=== PATIENT | male | born 1945 | race Caucasian/White ===

== ENCOUNTER 2018-11-18 12:48 | Outpatient (RCR) | payer MEDICARE, OTHER ==
[2018-10-08 14:17] LABS: HEMATOCRIT 37 % (40-54); HEMOGLOBIN 10.7 G/DL (13.3-17.7); MEAN CORPUSCULAR HEMOGLOBIN 19 PG (25-34); MEAN CORPUSCULAR HGB CONC 29 G/DL (32-36); MEAN CORPUSCULAR VOLUME 65 FL (80-99); WHITE BLOOD COUNT 7.8 10^3/uL (4.3-11.0)
[2018-10-08 14:18] LABS: ABSOLUTE RETIC # 46 10e9/L (24-90); BASOPHILS % (AUTO) 1 % (0-10); EOSINOPHILS # (AUTO) 0.2 10^3/uL (0.0-0.3); EOSINOPHILS % (AUTO) 2 % (0-10); LYMPHOCYTES # (AUTO) 1.4 X 10^3 (1.0-4.0); LYMPHOCYTES % (AUTO) 18 % (12-44); MEAN PLATELET VOLUME 10.9 FL (7.4-10.4); MONOCYTES # (AUTO) 0.8 X 10^3 (0.0-1.0); MONOCYTES % (AUTO) 10 % (0-12); NEUTROPHILS # (AUTO) 5.4 X 10^3 (1.8-7.8); NEUTROPHILS % (AUTO) 70 % (42-75); PLATELET COUNT 241 10^3/uL (130-400); RED CELL DISTRIBUTION WIDTH 19.1 % (10.0-14.5)
[2018-10-08 14:19] LABS: RETICULOCYTE % 0.82 % (0.50-2.40)
[2018-10-08 14:24] LABS: ALANINE AMINOTRANSFERASE 18 U/L (0-55); ALBUMIN 4.1 GM/DL (3.2-4.5); ALKALINE PHOSPHATASE 61 U/L (40-136); BILIRUBIN,TOTAL 0.4 MG/DL (0.1-1.0); BUN/CREATININE RATIO 17; CALCIUM 9.3 MG/DL (8.5-10.1); CARBON DIOXIDE 23 MMOL/L (21-32); CHLORIDE 105 MMOL/L (98-107); CREATININE SERUM 1.01 MG/DL (0.60-1.30); GFR ESTIMATED > 60; GLUCOSE 202 MG/DL (70-105); POTASSIUM 3.6 MMOL/L (3.6-5.0); SODIUM 136 MMOL/L (135-145); TOTAL PROTEIN 6.8 GM/DL (6.4-8.2)
[~2018-11-18 12:48] MED LIST: FERRIC CARBOXYMALTOSE (CANCER) 750 MG in NS (IVPB) CANCER CENTER 250 ML IV SCH
[2018-11-18 13:22] LABS: BASOPHILS % (AUTO) 1 % (0-10); EOSINOPHILS # (AUTO) 0.1 10^3/uL (0.0-0.3); EOSINOPHILS % (AUTO) 1 % (0-10); HEMATOCRIT 45 % (40-54); HEMOGLOBIN 14.2 G/DL (13.3-17.7); LYMPHOCYTES # (AUTO) 1.7 X 10^3 (1.0-4.0); LYMPHOCYTES % (AUTO) 21 % (12-44); MEAN CORPUSCULAR HEMOGLOBIN 24 PG (25-34); MEAN CORPUSCULAR HGB CONC 32 G/DL (32-36); MEAN CORPUSCULAR VOLUME 76 FL (80-99); MONOCYTES # (AUTO) 0.7 X 10^3 (0.0-1.0); MONOCYTES % (AUTO) 9 % (0-12); NEUTROPHILS # (AUTO) 5.3 X 10^3 (1.8-7.8); NEUTROPHILS % (AUTO) 68 % (42-75); PLATELET COUNT 189 10^3/uL (130-400); WHITE BLOOD COUNT 7.9 10^3/uL (4.3-11.0)
[2018-11-18 13:41] LABS: ALANINE AMINOTRANSFERASE 25 U/L (0-55); ALBUMIN 4.4 GM/DL (3.2-4.5); ALKALINE PHOSPHATASE 66 U/L (40-136); BILIRUBIN,TOTAL 0.5 MG/DL (0.1-1.0); BUN/CREATININE RATIO 17; CALCIUM 9.7 MG/DL (8.5-10.1); CARBON DIOXIDE 26 MMOL/L (21-32); CHLORIDE 103 MMOL/L (98-107); CREATININE SERUM 1.03 MG/DL (0.60-1.30); GFR ESTIMATED > 60; GLUCOSE 127 MG/DL (70-105); POTASSIUM 3.8 MMOL/L (3.6-5.0); SODIUM 139 MMOL/L (135-145)
== END 2019-01-06 | disposition home or self-care (01) ==
LOC: ONC 12:48
PROVIDERS: ATTEND Internal Medicine Hematology & Oncology
DX: D50.9 Iron deficiency anemia, unspecified (principal); K90.9 Intestinal malabsorption, unspecified; E11.9 Type 2 diabetes mellitus without complications; I10 Essential (primary) hypertension; E78.00 Pure hypercholesterolemia, unspecified; Z79.82 Long term (current) use of aspirin; Z79.84 Long term (current) use of oral hypoglycemic drugs; Z79.899 Other long term (current) drug therapy
CPT/HCPCS: 36415; 80053; 82274; 82728; 83540; 85007; 85025; 85045; 96365; 99213; 99214

== ENCOUNTER 2019-02-20 10:08 | Outpatient (RCR) | payer MEDICARE, OTHER ==
[2019-02-17 13:09] LABS: BASOPHILS % (AUTO) 0 % (0-10); EOSINOPHILS # (AUTO) 0.1 10^3/uL (0.0-0.3); EOSINOPHILS % (AUTO) 1 % (0-10); HEMATOCRIT 49 % (40-54); HEMOGLOBIN 16.4 G/DL (13.3-17.7); LYMPHOCYTES # (AUTO) 1.5 X 10^3 (1.0-4.0); LYMPHOCYTES % (AUTO) 16 % (12-44); MEAN CORPUSCULAR HEMOGLOBIN 28 PG (25-34); MEAN CORPUSCULAR HGB CONC 33 G/DL (32-36); MEAN CORPUSCULAR VOLUME 85 FL (80-99); MEAN PLATELET VOLUME 10.8 FL (7.4-10.4); MONOCYTES # (AUTO) 0.8 X 10^3 (0.0-1.0); MONOCYTES % (AUTO) 9 % (0-12); NEUTROPHILS # (AUTO) 6.9 X 10^3 (1.8-7.8); NEUTROPHILS % (AUTO) 74 % (42-75); PLATELET COUNT 180 10^3/uL (130-400); RED CELL DISTRIBUTION WIDTH 14.4 % (10.0-14.5); WHITE BLOOD COUNT 9.3 10^3/uL (4.3-11.0)
[2019-02-17 13:32] LABS: ALANINE AMINOTRANSFERASE 19 U/L (0-55); ALBUMIN 4.2 GM/DL (3.2-4.5); ALKALINE PHOSPHATASE 70 U/L (40-136); BILIRUBIN,TOTAL 0.4 MG/DL (0.1-1.0); BUN/CREATININE RATIO 21; CALCIUM 9.4 MG/DL (8.5-10.1); CARBON DIOXIDE 23 MMOL/L (21-32); CHLORIDE 106 MMOL/L (98-107); CREATININE SERUM 1.05 MG/DL (0.60-1.30); GFR ESTIMATED > 60; GLUCOSE 150 MG/DL (70-105); POTASSIUM 4.2 MMOL/L (3.6-5.0); SODIUM 140 MMOL/L (135-145); TOTAL PROTEIN 6.9 GM/DL (6.4-8.2)
[2019-04-10] MEDS ORDERED: CYAN-23 PO (10:10)
[2019-04-10] MEDS ORDERED: SAXA5TAB PO (10:10)
[2019-04-10] MEDS ORDERED: ALFU10TA11 PO (10:10)
[2019-04-10] MEDS ORDERED: FINA5TAB6 PO (10:10)
[2019-04-10] MEDS ORDERED: CANA300T PO (10:10)
[2019-04-10] MEDS ORDERED: ASPI-586 PO (10:10)
[2019-04-10] MEDS ORDERED: INSU100V37 SQ (10:10)
[2019-04-10] MEDS ORDERED: PANT40TA3 PO (10:10)
[2019-04-10] MEDS ORDERED: BENA5TAB3 PO (10:10)
[2019-04-10] MEDS ORDERED: METF-399 PO (10:10)
[2019-04-10] MEDS ORDERED: ATOR40TA70 PO (10:10)
[2019-04-10] MEDS ORDERED: RIVA10TA PO (10:10)
== END 2019-05-18 | disposition home or self-care (01) ==
LOC: ONC 10:08
PROVIDERS: ATTEND Internal Medicine Hematology & Oncology
DX: D50.9 Iron deficiency anemia, unspecified (principal); K90.9 Intestinal malabsorption, unspecified; E11.9 Type 2 diabetes mellitus without complications; I10 Essential (primary) hypertension; E78.00 Pure hypercholesterolemia, unspecified; Z79.82 Long term (current) use of aspirin; Z79.84 Long term (current) use of oral hypoglycemic drugs; Z79.899 Other long term (current) drug therapy
CPT/HCPCS: 36415; 80053; 82728; 85025; 99213

== ENCOUNTER 2019-04-10 05:34 | Outpatient (CLI) | payer MEDICARE, OTHER ==
[~2019-04-10] VITALS: Ht 182 cm; Wt 95.4 kg
[2019-04-10] MEDS ORDERED: INSU100V37 SQ (10:10)
[2019-04-10] MEDS ORDERED: CANA300T PO (10:10)
[2019-04-10] MEDS ORDERED: RIVA10TA PO (10:10)
[2019-04-10] MEDS ORDERED: FINA5TAB6 PO (10:10)
[2019-04-10] MEDS ORDERED: PANT40TA3 PO (10:10)
[2019-04-10] MEDS ORDERED: ASPI-586 PO (10:10)
[2019-04-10] MEDS ORDERED: CYAN-23 PO (10:10)
[2019-04-10] MEDS ORDERED: ALFU10TA11 PO (10:10)
[2019-04-10] MEDS ORDERED: ATOR40TA70 PO (10:10)
[2019-04-10] MEDS ORDERED: METF-399 PO (10:10)
[2019-04-10] MEDS ORDERED: SAXA5TAB PO (10:10)
[2019-04-10] MEDS ORDERED: BENA5TAB3 PO (10:10)
== END 2019-04-10 10:14 | disposition home or self-care (01) ==
LOC: PREOP 05:34
PROVIDERS: ATTEND Specialist
DX: Z01.818 Encounter for other preprocedural examination (principal)

== ENCOUNTER 2019-04-11 10:28 | Day surgery (SDC) | payer MEDICARE, OTHER ==
[~2019-04-11] VITALS: Ht 182 cm; Wt 95.4 kg
[~2019-04-11 10:28] MED LIST changes: +ALFU10TA12 PO; +ASPI-586 PO; +ATOR40TA70 PO; +BENA5TAB3 PO; +CANA300T PO; +CYAN-23 PO; -FERRIC CARBOXYMALTOSE (CANCER) 750 MG in NS (IVPB) CANCER CENTER 250 ML IV SCH; +FINA5TAB6 PO; +INSU100V37 SQ; +METF-399 PO; +PANT40TA3 PO; +RIVA10TA PO; +SAXA5TAB PO
[2019-04-11 10:35] VITALS: BP 143/75
[2019-04-11] MEDS ORDERED: LIDOCAINE PF 1% 2 ML AMP IR PRN (10:45)
[2019-04-11] MEDS ORDERED: TIMOLOL MALEATE 0.5% 5 ML (TIMOPTIC) BTL OU PRN (10:45)
[2019-04-11] MEDS ORDERED: POVIDONE (BETADINE) OPHTH SOLN 5% 30 ML OP ONE (10:45)
[2019-04-11] MEDS ORDERED: MOXIFLOXACIN OPHTH SOLN 5 MG/ML 0.3 ML SYRINGE OP ONE (10:45)
[2019-04-11] MEDS: TETRACAINE 0.5% OPHTH SOLN 4 ML BTL (SINGLE DOSE ONLY) OU PRN ×4 (10:50→11:16)
[2019-04-11] MEDS: CYCLOPENTOLATE 1% (CYCLOGYL) 2 ML DROPS OP SCH ×3 (11:01→11:16)
[2019-04-11] MEDS: PHENYLEPHRINE 10% OPHTH (NEO-SYN) 5 ML BTL OU SCH ×3 (11:01→11:16)
--- NOTE | 2019-04-11 11:31 | Ophthalmologist Pre-Op Note ---
Pre-Operative Progress Note H&P Reviewed The H&P was reviewed, patient examined and no changes noted. Date H&P Reviewed: Apr 11, 2019 Time H&P Reviewed: 11:30 Pre-Op Dx Cataract, Right Eye JUSTINA QUINN MD Apr 11, 2019 11:31 POS
[2019-04-11] MEDS ORDERED: MIDAZOLAM 2 MG/2 ML (VERSED) VIAL ONE (11:36)
--- NOTE | 2019-04-11 11:54 | Ophthalmology Operative Report ---
Cataract removal/placement IOL PREOPERATIVE DIAGNOSIS: Cataract Right Eye POSTOPERATIVE DIAGNOSIS: Cataract Right Eye PROCEDURE: Cataract removal and placement of posterior chamber implant, right eye SURGEON: Franklyn Quinn ANESTHESIA: Topical with sedation COMPLICATIONS: None ESTIMATED BLOOD LOSS: Minimal DESCRIPTION OF PROCEDURE: After proper informed consent was obtained, the patient, a 73 male, was taken to the Operating Room and the right eye was anesthetized with tetracaine. The right eye was then prepped and draped in the usual manner. A wire lid speculum was placed. A paracentesis was made at the left hand position. Preservative free lidocaine was injected into the anterior chamber followed by viscoelastic. A clear corneal incision was made in the temporal position. A capsulorrhexis was preformed and the central nuclear and cortical material were removed. The posterior capsule was polished and Mayank 16.0 AU00T0 IOL was placed into the capsular bag. The residual viscoelastic was aspirated and balanced saline solution was injected into the anterior chamber. Moxifloxacin was injected into the anterior chamber. The wound was checked and found to be water tight. The patient tolerated the procedure well without complications. FRANKLYN QUINN MD Apr 11, 2019 11:54 POS
[2019-04-11] MEDS ORDERED: acetaZOLAMIDE ER 500 MG CAP (DIAMOX SEQUELS) PO ONE (12:00)
[2019-04-11 12:02] VITALS: BP 124/66
--- NOTE | 2019-04-11 12:02 | Anesthesia-General Post-Op ---
MAC Patient Condition Mental Status/LOC: Same as Preop Cardiovascular: Satisfactory Nausea/Vomiting: Absent Respiratory: Satisfactory Pain: Controlled Complications: Absent Post Op Complications Complications None Follow Up Care/Instructions Patient Instructions None needed. Anesthesiology Discharge Order Discharge Order Patient is doing well, no complaints, stable vital signs, no apparent adverse anesthesia problems. No complications reported per nursing. JOSE ARMANDO GR CRNA Apr 11, 2019 12:02 POS
--- OUTSIDE RECORDS SUMMARY | 2019-05-07 14:20 | XMS REPORT | Continuity of Care Document ---
Author Organization Unknown Address Unknown Phone Unavailable Allergies Active Description Code Type Severity Reaction Onset Reported/Identified Relationship to Patient Clinical Status Yes No Known Drug Allergies [id number] Drug Allergy Unknown N/A 10/15/2018 Medications There is no data. 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 10/18/2018 ANN MARIE, BOBAN N Ot Z79.84 DRAWING SUPERVISOR (CURRENT) USE OF ORAL HYPOGLYC 10/18/2018 ANN MARIE, BOBAN N Ot Z79.899 OTHER DRAWING SUPERVISOR (CURRENT) DRUG THERAPY 11/28/2018 ANN MARIE, BOBAN N Ot D50.9 IRON DEFICIENCY ANEMIA, UNSPECIFIED 11/28/2018 ANN MARIE, BOBAN N Ot E11.9 TYPE 2 DIABETES MELLITUS WITHOUT COMPLIC 11/28/2018 ANN MARIE, BOBAN N Ot E78.00 PURE HYPERCHOLESTEROLEMIA, UNSPECIFIED 11/28/2018 ANN MARIE, BOBAN N Ot I10 ESSENTIAL (PRIMARY) HYPERTENSION 11/28/2018 ANN MARIE, BOBAN N Ot K90.9 INTESTINAL MALABSORPTION, UNSPECIFIED 11/28/2018 ANN MARIE, BOBAN N Ot Z79.82 DRAWING SUPERVISOR (CURRENT) USE OF ASPIRIN 11/28/2018 ANN MARIE, BOBAN N Ot Z79.84 SENIOR LIVING (CURRENT) USE OF ORAL HYPOGLYC 11/28/2018 ANN MARIE, BOBAN N Ot Z79.899 OTHER DRAWING SUPERVISOR (CURRENT) DRUG THERAPY 12/10/2018 ANN MARIE, BOBAN N Ot D50.9 IRON DEFICIENCY ANEMIA, UNSPECIFIED 12/10/2018 ANN MARIE, BOBAN N Ot E11.9 TYPE 2 DIABETES MELLITUS WITHOUT COMPLIC 12/10/2018 ANN MARIE, BOBAN N Ot E78.00 PURE HYPERCHOLESTEROLEMIA, UNSPECIFIED 12/10/2018 ANN MARIE, BOBAN N Ot I10 ESSENTIAL (PRIMARY) HYPERTENSION 12/10/2018 ANN MARIE, BOBAN N Ot K90.9 INTESTINAL MALABSORPTION, UNSPECIFIED 12/10/2018 ANN MARIE, BOBAN N Ot Z79.82 [facility] (CURRENT) USE OF ASPIRIN 12/10/2018 ANN MARIE, BOBAN N Ot Z79.84 [facility] (CURRENT) USE OF ORAL HYPOGLYC 12/10/2018 ANN MARIE, BOBAN N Ot Z79.899 OTHER SENIOR LIVING (CURRENT) DRUG THERAPY 01/06/2019 ANN MARIE, BOBAN N Ot D50.9 IRON DEFICIENCY ANEMIA, UNSPECIFIED 01/06/2019 ANN MARIE, BOBAN N Ot E11.9 TYPE 2 DIABETES MELLITUS WITHOUT COMPLIC 01/06/2019 ANN MARIE, BOBAN N Ot E78.00 PURE HYPERCHOLESTEROLEMIA, UNSPECIFIED 01/06/2019 ANN MARIE, BOBAN N Ot I10 ESSENTIAL (PRIMARY) HYPERTENSION 01/06/2019 ANN MARIE, BOBAN N Ot K90.9 INTESTINAL MALABSORPTION, UNSPECIFIED 01/06/2019 ANN MARIE, BOBAN N Ot Z79.82 [facility] (CURRENT) USE OF ASPIRIN 01/06/2019 ANN MARIE, BOBAN N Ot Z79.84 DRAWING SUPERVISOR (CURRENT) USE OF ORAL HYPOGLYC 01/06/2019 ANN MARIE, BOBAN N Ot Z79.899 OTHER SENIOR LIVING (CURRENT) DRUG THERAPY 01/07/2019 ANN MARIE, BOBAN N Ot D50.9 IRON DEFICIENCY ANEMIA, UNSPECIFIED 01/07/2019 ANN MARIE, BOBAN N Ot E11.9 TYPE 2 DIABETES MELLITUS WITHOUT COMPLIC 01/07/2019 ANN MARIE, BOBAN N Ot E78.00 PURE HYPERCHOLESTEROLEMIA, UNSPECIFIED 01/07/2019 ANN MARIE, BOBAN N Ot I10 ESSENTIAL (PRIMARY) HYPERTENSION 01/07/2019 ANN MARIE, BOBAN N Ot K90.9 INTESTINAL MALABSORPTION, UNSPECIFIED 01/07/2019 ANN MARIE, BOBAN N Ot Z79.82 DRAWING SUPERVISOR (CURRENT) USE OF ASPIRIN 01/07/2019 ANN MARIE, BOBAN N Ot Z79.84 [facility] (CURRENT) USE OF ORAL HYPOGLYC 01/07/2019 BALTAZAR JESUS N Ot Z79.899 OTHER SENIOR LIVING (CURRENT) DRUG THERAPY 04/01/2019 BALTAZAR JESUS Ot D50.9 IRON DEFICIENCY ANEMIA, UNSPECIFIED 04/01/2019 BALTAZAR JESUS N Ot E11.9 TYPE 2 DIABETES MELLITUS WITHOUT COMPLIC 04/01/2019 BALTAZAR JESUS N Ot E78.00 PURE HYPERCHOLESTEROLEMIA, UNSPECIFIED 04/01/2019 BALTAZAR JESUS N Ot I10 ESSENTIAL (PRIMARY) HYPERTENSION 04/01/2019 BALTAZAR JESUS N Ot K90.9 INTESTINAL MALABSORPTION, UNSPECIFIED 04/01/2019 BALTAZAR JESUS N Ot Z79.82 DRAWING SUPERVISOR (CURRENT) USE OF ASPIRIN 04/01/2019 BALTAZAR JESUS N Ot Z79.84 DRAWING SUPERVISOR (CURRENT) USE OF ORAL HYPOGLYC 04/01/2019 BALTAZAR JESUS N Ot Z79.899 OTHER DRAWING SUPERVISOR (CURRENT) DRUG THERAPY 04/10/2019 JUSTINA QUINN MD Ot Z01.818 ENCOUNTER FOR OTHER PREPROCEDURAL EXAMIN 04/11/2019 JUSTINA QUINN MD, Ot 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 04/11/2019 JUSTINA QUINN MD, Ot E78.00 PURE HYPERCHOLESTEROLEMIA, UNSPECIFIED 04/11/2019 JUSTINA QUINN MD Ot E78 .5 HYPERLIPIDEMIA, UNSPECIFIED 04/11/2019 JUSTINA QUINN MD Ot H25.11 AGE-RELATED NUCLEAR CATARACT, RIGHT EYE 04/11/2019 JUSTINA QUINN MD Ot I10 ESSENTIAL (PRIMARY) HYPERTENSION 04/11/2019 JUSTINA QUINN MD Ot Z79.84 [facility] LIV[facility] (CURRENT) USE OF ORAL HYPOGLYC 04/11/2019 JUSTINA QUINN MD Ot Z79.899 OTHER DRAWING SUPERVISOR (CURRENT) DRUG THERAPY 04/11/2019 JUSTINA QUINN MD Ot Z01.818 ENCOUNTER FOR OTHER PREPROCEDURAL EXAMIN 04/15/2019 JUSTINA QUINN MD, Ot 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 04/15/2019 JUSTINA QUINN MD Ot E78.00 PURE HYPERCHOLESTEROLEMIA, UNSPECIFIED 04/15/2019 ANLIKER MD, JUSTINA L Ot E78 .5 HYPERLIPIDEMIA, UNSPECIFIED 04/15/2019 JUSTINA QUINN MD Ot H25.11 AGE-RELATED NUCLEAR CATARACT, RIGHT EYE 04/15/2019 JUSTINA QUINN MD Ot I10 ESSENTIAL (PRIMARY) HYPERTENSION 04/15/2019 JUSTINA QUINN MD Ot Z79.84 DRAWING SUPERVISOR (CURRENT) USE OF ORAL HYPOGLYC 04/15/2019 JUSTINA QUINN MD Ot Z79.899 OTHER SENIOR LIVING (CURRENT) DRUG THERAPY 04/18/2019 JUSTINA QUINN MD Ot E11 .9 TYPE 2 DIABETES MELLITUS WITHOUT COMPLIC 04/18/2019 JUSTINA QUINN MD Ot E78.00 PURE HYPERCHOLESTEROLEMIA, UNSPECIFIED 04/18/2019 JUSTINA QUINN MD Ot H25.12 AGE-RELATED NUCLEAR CATARACT, LEFT EYE 04/18/2019 JUSTINA QUINN MD Ot I10 ESSENTIAL (PRIMARY) HYPERTENSION 04/18/2019 JUSTINA QUINN MD Ot Z79.01 DRAWING SUPERVISOR (CURRENT) USE OF ANTICOAGULANT 04/18/2019 JUSTINA QUINN MD Ot Z79.82 SENIOR LIVING (CURRENT) USE OF ASPIRIN 04/18/2019 JUSTINA QUINN MD Ot Z79.84 SEN[facility] LIVING (CURRENT) USE OF ORAL HYPOGLYC 04/18/2019 JUSTINA QUINN MD Ot Z79.899 OTHER SENIOR LIVING (CURRENT) DRUG THERAPY 04/22/2019 JUSTINA QUINN MD, Ot E11 .9 TYPE 2 DIABETES MELLITUS WITHOUT COMPLIC 04/22/2019 JUSTINA QUINN MD Ot E78.00 PURE HYPERCHOLESTEROLEMIA, UNSPECIFIED 04/22/2019 JUSTINA QUINN MD Ot H25.12 AGE-RELATED NUCLEAR CATARACT, LEFT EYE 04/22/2019 JUSTINA QUINN MD Ot I10 ESSENTIAL (PRIMARY) HYPERTENSION 04/22/2019 JUSTINA QUINN MD Ot Z79.01 DRAWING SUPERVISOR (CURRENT) USE OF ANTICOAGULANT 04/22/2019 JUSTINA QUINN MD Ot Z79.82 DRAWING SUPERVISOR (CURRENT) USE OF ASPIRIN 04/22/2019 JUSTINA QUINN MD Ot Z79.84 DRAWING SUPERVISOR (CURRENT) USE OF ORAL HYPOGLYC 04/22/2019 JUSTINA QUINN MD Ot Z79.899 OTHER SENIOR LIVING (CURRENT) DRUG THERAPY Procedures There is no data. Results Test Result Range Complete blood count (CBC) with automate d white blood cell (WBC) differential - 11/18/18 13:10 Blood leukocytes automated count (number/volume) 7.9 10*3/uL 4.3-11.0 Blood erythrocytes automated count (number/volume) 5.88 10*6/uL 4.35-5.85 Venous blood hemoglobin measurement (mass/volume) 14.2 g/dL 13.3-17.7 Blood hematocrit (volume fraction) 45 % 40-54 Automated erythrocyte mean corpuscular volume 76 [ foz_us] 80-99 Automated erythrocyte mean corpuscular h emoglobin (mass per erythrocyte) 24 pg 25-34 Automated erythrocyte mean corpuscular h emoglobin concentration measurement (mass/volume) 32 g/dL 32-36 Automated erythrocyte distribution width ratio TNP 10.0- 14.5 Automated blood platelet count (count/volume) 189 10*3/uL 130-400 Automated blood platelet mean volume measurement 11.0 [foz_us] 7.4-10.4 Automated blood neutrophils/100 leukocytes 68 % 42-75 Automated blood lymphocytes/100 leukocytes 21 % 12-44 Blood monocytes/100 leukocytes 9 % 0-12 Automated blood eosinophils/100 leukocytes 1 % 0-10 Automated blood basophils/100 leukocytes 1 % 0-10 Blood neutrophils automated count (number/volume) 5.3 10*3 1.8-7.8 Blood lymphocytes automated count (number/volume) 1.7 10*3 1.0-4.0 Blood monocytes automated count (number/volume) 0. 7 10*3 0.0-1.0 Automated eosinophil count 0.1 10*3/uL 0 .0-0.3 Automated blood basophil count (count/volume) 0.0 10*3/uL 0.0-0.1 Comprehensive metabolic panel - 11/18/18 13:10 Serum or plasma sodium measurement (moles/volume) 139 mmol/L 135-145 Serum or plasma potassium measurement (moles/volume) 3.8 mmol/L 3.6-5.0 Serum or plasma chloride measurement (moles/volume) 103 mmol/L 98-107 Carbon dioxide 26 mmol/L 21-32 Serum or plasma anion gap determination (moles/volume) 10 mmol/L 5-14 Serum or plasma urea nitrogen measurement (mass/volume ) 17 mg/dL 7-18 Serum or plasma creatinine measurement (mass/volume) 1.03 mg/dL 0.60-1.30 Serum or plasma urea nitrogen/creatinine mass ratio 17 NRG Serum or plasma creatinine measurement w ith calculation of estimated glomerular filtration rate > NRG Serum or plasma glucose measurement (mass/volume) 127 mg/dL 70-105 Serum or plasma calcium measurement (mass/volume) 9.7 mg/dL 8.5-10.1 Serum or plasma total bilirubin measurement (mass/volu me) 0.5 mg/dL 0.1-1.0 Serum or plasma alkaline phosphatase esteban surement (enzymatic activity/volume) 66 U/L 40-136 Serum or plasma aspartate aminotransfera se measurement (enzymatic activity/volume) 23 U/L 5-34 Serum or plasma alanine aminotransferase measurement (enzymatic activity/volume) 25 U/L 0-55 Serum or plasma protein measurement (mass/volume) 7.0 g/dL 6.4-8.2 Serum or plasma albumin measurement (mass/volume) 4.4 g/dL 3.2-4.5 CALCIUM CORRECTED 9.4 mg/dL 8.5-10.1 Serum or plasma ferritin measurement (ma ss/volume) - 11/18/18 13:10 Serum or plasma ferritin measurement (mass/volume) 200.1 % 32.0-356.0 Encounters ACCT No. Visit Date/Time Discharge Status Pt. Type Provider Facility Loc./Unit Complaint [id number] 04/18/2019 08:15:00 09:46:00 DIS Outpatient JUSTINA QUINN MD [facility] CATARACT LEFT EYE [id number] 04/11/2019 10:28:00 12:02:00 DIS Outpatient JUSTINA QUINN MD [facility] CATARACT RIGHT EYE [id number] 04/10/2019 05:34:00 10:14:00 DIS Outpatient JUSTINA QUINN MD [facility] PREOP CATARACT RIGHT EYE [id number] 02/20/2019 10:08:00 23:59:59 CLS Outpatient BALTAZAR JESUS [facility] ONC [id number] 11/18/2018 12:48:00 00:01:00 DIS Outpatient BALTAZAR JESUS [facility] ONC
== END 2019-04-11 12:02 | disposition home or self-care (01) ==
LOC: SDC 10:28
PROVIDERS: ATTEND Specialist
DX: E11.36 Type 2 diabetes mellitus with diabetic cataract (principal); H25.11 Age-related nuclear cataract, right eye; I10 Essential (primary) hypertension; E78.5 Hyperlipidemia, unspecified; E78.00 Pure hypercholesterolemia, unspecified; Z79.899 Other long term (current) drug therapy; Z79.84 Long term (current) use of oral hypoglycemic drugs

== ENCOUNTER 2019-04-18 08:15 | Day surgery (SDC) | payer MEDICARE, OTHER ==
[~2019-04-18] VITALS: Ht 182 cm; Wt 95.4 kg
[~2019-04-18 08:15] MED LIST changes: +ALFU10TA11 PO; -ALFU10TA12 PO
[2019-04-18] MEDS ORDERED: LIDOCAINE PF 1% 2 ML AMP IR PRN (08:30)
[2019-04-18] MEDS ORDERED: POVIDONE (BETADINE) OPHTH SOLN 5% 30 ML OP ONE (08:30)
[2019-04-18] MEDS: TETRACAINE 0.5% OPHTH SOLN 4 ML BTL (SINGLE DOSE ONLY) OU PRN ×4 (08:30→08:58)
[2019-04-18] MEDS ORDERED: TIMOLOL MALEATE 0.5% 5 ML (TIMOPTIC) BTL OU PRN (08:30)
[2019-04-18] MEDS ORDERED: MOXIFLOXACIN OPHTH SOLN 5 MG/ML 0.3 ML SYRINGE OP ONE (08:30)
[2019-04-18] MEDS: CYCLOPENTOLATE 1% (CYCLOGYL) 2 ML DROPS OP SCH ×3 (08:42→08:58)
[2019-04-18] MEDS: PHENYLEPHRINE 10% OPHTH (NEO-SYN) 5 ML BTL OU SCH ×3 (08:42→08:58)
--- NOTE | 2019-04-18 09:15 | Ophthalmologist Pre-Op Note ---
Pre-Operative Progress Note H&P Reviewed The H&P was reviewed, patient examined and no changes noted. Date H&P Reviewed: Apr 18, 2019 Time H&P Reviewed: 09:15 Pre-Op Dx Cataract, Left Eye JUSTINA QUINN MD Apr 18, 2019 09:15 POS
[2019-04-18] MEDS ORDERED: MIDAZOLAM 2 MG/2 ML (VERSED) VIAL ONE (09:20)
--- NOTE | 2019-04-18 09:38 | Ophthalmology Operative Report ---
Cataract removal/placement IOL PREOPERATIVE DIAGNOSIS: Cataract Left Eye POSTOPERATIVE DIAGNOSIS: Cataract Left Eye PROCEDURE: Cataract removal and placement of posterior chamber implant, left eye SURGEON: Franklyn Quinn ANESTHESIA: Topical with sedation COMPLICATIONS: None ESTIMATED BLOOD LOSS: Minimal DESCRIPTION OF PROCEDURE: After proper informed consent was obtained, the patient, a 73 male, was taken to the Operating Room and the left eye was anesthetized with tetracaine. The left eye was then prepped and draped in the usual manner. A wire lid speculum was placed. A paracentesis was made at the left hand position. Preservative free lidocaine was injected into the anterior chamber followed by viscoelastic. A clear corneal incision was made in the temporal position. A capsulorrhexis was preformed and the central nuclear and cortical material were removed. The posterior capsule was polished and an Mayank 14.5 AU00T0 was placed into the capsular bag. The residual viscoelastic was aspirated and balanced saline solution was injected into the anterior chamber. Moxifloxacin was injected into the anterior chamber. The wound was checked and found to be water tight. The patient tolerated the procedure well without complications. FRANKLYN QUINN MD Apr 18, 2019 09:38 POS
[2019-04-18 09:46] VITALS: BP 123/64
[2019-04-18] MEDS ORDERED: acetaZOLAMIDE ER 500 MG CAP (DIAMOX SEQUELS) PO ONE (10:00)
--- NOTE | 2019-04-18 12:37 | Anesthesia-General Post-Op ---
MAC Patient Condition Mental Status/LOC: Same as Preop Cardiovascular: Satisfactory Nausea/Vomiting: Absent Respiratory: Satisfactory Pain: Controlled Complications: Absent Post Op Complications Complications None Follow Up Care/Instructions Patient Instructions None needed. Anesthesiology Discharge Order Discharge Order Patient is doing well, no complaints, stable vital signs, no apparent adverse anesthesia problems. No complications reported per nursing. NAVNEET ISSA CRNA Apr 18, 2019 12:37 POS
== END 2019-04-18 09:46 | disposition home or self-care (01) ==
LOC: SDC 08:15
PROVIDERS: ATTEND Specialist
DX: H25.12 Age-related nuclear cataract, left eye (principal); E11.9 Type 2 diabetes mellitus without complications; E78.00 Pure hypercholesterolemia, unspecified; I10 Essential (primary) hypertension; Z79.84 Long term (current) use of oral hypoglycemic drugs; Z79.01 Long term (current) use of anticoagulants; Z79.82 Long term (current) use of aspirin; Z79.899 Other long term (current) drug therapy

== ENCOUNTER 2019-11-24 09:54 | Outpatient (RCR) | payer MEDICARE, OTHER ==
[2019-09-12 14:15] LABS: BASOPHILS % (AUTO) 0 % (0-10); EOSINOPHILS # (AUTO) 0.1 10^3/uL (0.0-0.3); EOSINOPHILS % (AUTO) 1 % (0-10); HEMATOCRIT 52 % (40-54); HEMOGLOBIN 16.7 G/DL (13.3-17.7); LYMPHOCYTES # (AUTO) 1.5 X 10^3 (1.0-4.0); LYMPHOCYTES % (AUTO) 17 % (12-44); MEAN CORPUSCULAR HEMOGLOBIN 28 PG (25-34); MEAN CORPUSCULAR HGB CONC 32 G/DL (32-36); MEAN CORPUSCULAR VOLUME 85 FL (80-99); MEAN PLATELET VOLUME 10.6 FL (7.4-10.4); MONOCYTES # (AUTO) 0.8 X 10^3 (0.0-1.0); MONOCYTES % (AUTO) 8 % (0-12); NEUTROPHILS # (AUTO) 6.8 X 10^3 (1.8-7.8); NEUTROPHILS % (AUTO) 74 % (42-75); PLATELET COUNT 192 10^3/uL (130-400); RED CELL DISTRIBUTION WIDTH 14.7 % (10.0-14.5); WHITE BLOOD COUNT 9.2 10^3/uL (4.3-11.0)
[2019-09-12 14:37] LABS: ALANINE AMINOTRANSFERASE 22 U/L (0-55); ALBUMIN 4.3 GM/DL (3.2-4.5); ALKALINE PHOSPHATASE 65 U/L (40-136); BILIRUBIN,TOTAL 0.5 MG/DL (0.1-1.0); BUN/CREATININE RATIO 18; CALCIUM 9.4 MG/DL (8.5-10.1); CARBON DIOXIDE 23 MMOL/L (21-32); CHLORIDE 106 MMOL/L (98-107); CREATININE SERUM 1.12 MG/DL (0.60-1.30); GFR ESTIMATED > 60; GLUCOSE 165 MG/DL (70-105); POTASSIUM 4.3 MMOL/L (3.6-5.0); SODIUM 140 MMOL/L (135-145); TOTAL PROTEIN 7.1 GM/DL (6.4-8.2)
[2019-11-20 11:04] LABS: BASOPHILS % (AUTO) 0 % (0-10); EOSINOPHILS # (AUTO) 0.1 10^3/uL (0.0-0.3); EOSINOPHILS % (AUTO) 2 % (0-10); HEMATOCRIT 51 % (40-54); HEMOGLOBIN 16.9 G/DL (13.3-17.7); LYMPHOCYTES # (AUTO) 1.5 X 10^3 (1.0-4.0); LYMPHOCYTES % (AUTO) 19 % (12-44); MEAN CORPUSCULAR HEMOGLOBIN 29 PG (25-34); MEAN CORPUSCULAR HGB CONC 33 G/DL (32-36); MEAN CORPUSCULAR VOLUME 86 FL (80-99); MEAN PLATELET VOLUME 10.5 FL (7.4-10.4); MONOCYTES # (AUTO) 0.6 X 10^3 (0.0-1.0); MONOCYTES % (AUTO) 8 % (0-12); NEUTROPHILS # (AUTO) 5.7 X 10^3 (1.8-7.8); NEUTROPHILS % (AUTO) 72 % (42-75); PLATELET COUNT 172 10^3/uL (130-400); RED CELL DISTRIBUTION WIDTH 14.7 % (10.0-14.5)
[2019-11-20 11:31] LABS: ALANINE AMINOTRANSFERASE 29 U/L (0-55); ALBUMIN 4.4 GM/DL (3.2-4.5); ALKALINE PHOSPHATASE 75 U/L (40-136); BILIRUBIN,TOTAL 0.6 MG/DL (0.1-1.0); BUN/CREATININE RATIO 21; CALCIUM 9.4 MG/DL (8.5-10.1); CARBON DIOXIDE 20 MMOL/L (21-32); CHLORIDE 106 MMOL/L (98-107); CREATININE SERUM 0.99 MG/DL (0.60-1.30); GFR ESTIMATED > 60; GLUCOSE 180 MG/DL (70-105); POTASSIUM 4.3 MMOL/L (3.6-5.0); SODIUM 139 MMOL/L (135-145); TOTAL PROTEIN 7.2 GM/DL (6.4-8.2)
[~2019-11-24 09:54] MED LIST changes: -ALFU10TA11 PO; +ALFU10TA12 PO
== END 2019-12-11 | disposition home or self-care (01) ==
LOC: ONC 09:54
PROVIDERS: ATTEND Internal Medicine Hematology & Oncology
DX: D50.9 Iron deficiency anemia, unspecified (principal); K90.9 Intestinal malabsorption, unspecified; E11.9 Type 2 diabetes mellitus without complications; I10 Essential (primary) hypertension; E78.00 Pure hypercholesterolemia, unspecified; Z79.82 Long term (current) use of aspirin; Z79.84 Long term (current) use of oral hypoglycemic drugs; Z79.899 Other long term (current) drug therapy
CPT/HCPCS: 80053; 82728; 85025; 99213

== ENCOUNTER 2020-05-25 09:55 | Outpatient (RCR) | payer MEDICARE, OTHER ==
[2020-05-17 14:47] LABS: BASOPHILS % (AUTO) 0 % (0-10); EOSINOPHILS # (AUTO) 0.1 10^3/uL (0.0-0.3); EOSINOPHILS % (AUTO) 1 % (0-10); HEMATOCRIT 51 % (40-54); LYMPHOCYTES # (AUTO) 1.7 10^3/uL (1.0-4.0); LYMPHOCYTES % (AUTO) 19 % (12-44); MEAN CORPUSCULAR HEMOGLOBIN 29 pg (25-34); MEAN CORPUSCULAR HGB CONC 33 g/dL (32-36); MEAN CORPUSCULAR VOLUME 88 fL (80-99); MEAN PLATELET VOLUME 10.4 fL (9.0-12.2); MONOCYTES # (AUTO) 0.8 10^3/uL (0.0-1.0); MONOCYTES % (AUTO) 8 % (0-12); NEUTROPHILS # (AUTO) 6.5 10^3/uL (1.8-7.8); NEUTROPHILS % (AUTO) 71 % (42-75); PLATELET COUNT 186 10^3/uL (130-400); WHITE BLOOD COUNT 9.1 10^3/uL (4.3-11.0)
[2020-05-17 15:07] LABS: ALANINE AMINOTRANSFERASE 27 U/L (0-55); ALBUMIN 4.3 GM/DL (3.2-4.5); ALKALINE PHOSPHATASE 69 U/L (40-136); BILIRUBIN,TOTAL 0.4 MG/DL (0.1-1.0); BUN/CREATININE RATIO 18; CALCIUM 9.4 MG/DL (8.5-10.1); CARBON DIOXIDE 23 MMOL/L (21-32); CHLORIDE 103 MMOL/L (98-107); CREATININE SERUM 1.01 MG/DL (0.60-1.30); GFR ESTIMATED > 60; GLUCOSE 191 MG/DL (70-105); POTASSIUM 4.1 MMOL/L (3.6-5.0); SODIUM 136 MMOL/L (135-145); TOTAL PROTEIN 7.1 GM/DL (6.4-8.2)
[~2020-05-25 09:55] MED LIST changes: -PANT40TA3 PO; +PANT40TA52 PO
== END 2020-08-15 | disposition home or self-care (01) ==
LOC: ONC 09:55
PROVIDERS: ATTEND Internal Medicine Hematology & Oncology
DX: K64.8 Other hemorrhoids (principal); D50.9 Iron deficiency anemia, unspecified; K90.9 Intestinal malabsorption, unspecified; E11.9 Type 2 diabetes mellitus without complications; I10 Essential (primary) hypertension; E78.00 Pure hypercholesterolemia, unspecified; Z79.82 Long term (current) use of aspirin; Z79.84 Long term (current) use of oral hypoglycemic drugs; Z79.899 Other long term (current) drug therapy; Z79.02 Long term (current) use of antithrombotics/antiplatelets; Z79.01 Long term (current) use of anticoagulants
CPT/HCPCS: 80053; 82728; 85025; 99213

== ENCOUNTER 2020-11-26 09:00 | Outpatient (RCR) | payer MEDICARE, OTHER ==
[2020-11-22 14:23] LABS: BASOPHILS # (AUTO) 0.1 10^3/uL (0.0-0.1); BASOPHILS % (AUTO) 1 % (0-10); EOSINOPHILS # (AUTO) 0.1 10^3/uL (0.0-0.3); EOSINOPHILS % (AUTO) 1 % (0-10); HEMATOCRIT 53 % (40-54); HEMOGLOBIN 17.5 g/dL (13.3-17.7); LYMPHOCYTES # (AUTO) 1.6 10^3/uL (1.0-4.0); LYMPHOCYTES % (AUTO) 18 % (12-44); MEAN CORPUSCULAR HEMOGLOBIN 30 pg (25-34); MEAN CORPUSCULAR HGB CONC 33 g/dL (32-36); MEAN CORPUSCULAR VOLUME 89 fL (80-99); MEAN PLATELET VOLUME 10.6 fL (9.0-12.2); MONOCYTES # (AUTO) 0.8 10^3/uL (0.0-1.0); MONOCYTES % (AUTO) 9 % (0-12); NEUTROPHILS # (AUTO) 6.3 10^3/uL (1.8-7.8); NEUTROPHILS % (AUTO) 70 % (42-75); PLATELET COUNT 171 10^3/uL (130-400); WHITE BLOOD COUNT 8.9 10^3/uL (4.3-11.0)
[2020-11-22 14:40] LABS: ALANINE AMINOTRANSFERASE 29 U/L (0-55); ALBUMIN 4.3 GM/DL (3.2-4.5); ALKALINE PHOSPHATASE 54 U/L (40-136); BILIRUBIN,TOTAL 0.6 MG/DL (0.1-1.0); BUN/CREATININE RATIO 19; CARBON DIOXIDE 26 MMOL/L (21-32); CHLORIDE 106 MMOL/L (98-107); CREATININE SERUM 1.08 MG/DL (0.60-1.30); GFR ESTIMATED > 60; GLUCOSE 132 MG/DL (70-105); POTASSIUM 4.2 MMOL/L (3.6-5.0); SODIUM 139 MMOL/L (135-145)
== END 2021-02-20 | disposition home or self-care (01) ==
LOC: ONC 09:00
PROVIDERS: ATTEND Internal Medicine Hematology & Oncology
DX: D50.9 Iron deficiency anemia, unspecified (principal); I82.402 Acute embolism and thrombosis of unspecified deep veins of left lower extremity; K29.70 Gastritis, unspecified, without bleeding; K90.9 Intestinal malabsorption, unspecified; E11.9 Type 2 diabetes mellitus without complications; I10 Essential (primary) hypertension; E78.00 Pure hypercholesterolemia, unspecified; Z79.899 Other long term (current) drug therapy
CPT/HCPCS: 80053; 82728; 85025; 99213

== ENCOUNTER → 2021-01-24 | Outpatient (CLI) | payer MEDICARE, OTHER | LOC: LABNPT 08:54 | PROVIDERS: ATTEND Internal Medicine Hematology & Oncology | DX: R71.8 Other abnormality of red blood cells (principal); Z20.822 Contact with and (suspected) exposure to COVID-19 | CPT/HCPCS: 87635 ==

== ENCOUNTER 2021-01-26 20:27 | Outpatient (CLI) | payer MEDICARE, OTHER | END 2021-01-27 06:05 | disposition home or self-care (01) | LOC: SLEEP 20:27 | PROVIDERS: ATTEND Internal Medicine Hematology & Oncology | DX: D50.9 Iron deficiency anemia, unspecified (principal); G47.9 Sleep disorder, unspecified; I10 Essential (primary) hypertension; E11.9 Type 2 diabetes mellitus without complications; E78.00 Pure hypercholesterolemia, unspecified; K29.70 Gastritis, unspecified, without bleeding; I82.402 Acute embolism and thrombosis of unspecified deep veins of left lower extremity; R71.8 Other abnormality of red blood cells | CPT/HCPCS: 95810 ==

== ENCOUNTER 2021-05-25 09:26 | Outpatient (RCR) | payer MEDICARE, OTHER ==
[2021-05-18 15:39] LABS: BASOPHILS # (AUTO) 0.1 10^3/uL (0.0-0.1); BASOPHILS % (AUTO) 1 % (0-10); EOSINOPHILS # (AUTO) 0.2 10^3/uL (0.0-0.3); EOSINOPHILS % (AUTO) 2 % (0-10); HEMATOCRIT 51 % (40-54); HEMOGLOBIN 16.6 g/dL (13.3-17.7); LYMPHOCYTES # (AUTO) 2.1 X 10^3 (1.0-4.0); LYMPHOCYTES % (AUTO) 20 % (12-44); MEAN CORPUSCULAR HEMOGLOBIN 28 pg (25-34); MEAN CORPUSCULAR HGB CONC 33 g/dL (32-36); MEAN CORPUSCULAR VOLUME 87 fL (80-99); MEAN PLATELET VOLUME 10.2 fL (9.0-12.2); MONOCYTES # (AUTO) 0.8 X 10^3 (0.0-1.0); MONOCYTES % (AUTO) 8 % (0-12); NEUTROPHILS # (AUTO) 7.1 X 10^3 (1.8-7.8); NEUTROPHILS % (AUTO) 69 % (42-75); PLATELET COUNT 205 10^3/uL (130-400); WHITE BLOOD COUNT 10.2 10^3/uL (4.3-11.0)
[2021-05-18 16:00] LABS: ALBUMIN 4.4 GM/DL (3.2-4.5); BILIRUBIN,TOTAL 0.5 MG/DL (0.1-1.0); CALCIUM 9.6 MG/DL (8.5-10.1); CREATININE SERUM 1.06 MG/DL (0.60-1.30); TOTAL PROTEIN 7.2 GM/DL (6.4-8.2)
[~2021-05-25 09:26] MED LIST changes: -BENA5TAB3 PO; +BENA5TAB36 PO
== END 2021-06-06 | disposition home or self-care (01) ==
LOC: ONC 09:26
PROVIDERS: ATTEND Internal Medicine Hematology & Oncology
DX: D50.9 Iron deficiency anemia, unspecified (principal); D58.2 Other hemoglobinopathies; K21.9 Gastro-esophageal reflux disease without esophagitis; I82.402 Acute embolism and thrombosis of unspecified deep veins of left lower extremity; E11.9 Type 2 diabetes mellitus without complications; E78.00 Pure hypercholesterolemia, unspecified; I10 Essential (primary) hypertension
CPT/HCPCS: 80053; 82728; 85025; 99213

== ENCOUNTER 2022-04-18 08:46 | Outpatient (RCR) | payer MEDICARE, OTHER ==
[2022-04-14 10:44] LABS: BASOPHILS % (AUTO) 1 % (0-10); EOSINOPHILS # (AUTO) 0.1 10^3/uL (0.0-0.3); EOSINOPHILS % (AUTO) 1 % (0-10); HEMATOCRIT 48 % (40-54); LYMPHOCYTES # (AUTO) 1.4 10^3/uL (1.0-4.0); LYMPHOCYTES % (AUTO) 18 % (12-44); MEAN CORPUSCULAR HEMOGLOBIN 26 pg (25-34); MEAN CORPUSCULAR HGB CONC 32 g/dL (32-36); MEAN CORPUSCULAR VOLUME 83 fL (80-99); MEAN PLATELET VOLUME 10.8 fL (9.0-12.2); MONOCYTES # (AUTO) 0.6 10^3/uL (0.0-1.0); MONOCYTES % (AUTO) 8 % (0-12); NEUTROPHILS # (AUTO) 5.7 10^3/uL (1.8-7.8); NEUTROPHILS % (AUTO) 72 % (42-75); PLATELET COUNT 189 10^3/uL (130-400); WHITE BLOOD COUNT 7.9 10^3/uL (4.3-11.0)
== END 2022-05-06 | disposition home or self-care (01) ==
LOC: ONC 08:46
PROVIDERS: ATTEND Internal Medicine Hematology & Oncology
DX: D75.1 Secondary polycythemia (principal); E11.9 Type 2 diabetes mellitus without complications; E78.00 Pure hypercholesterolemia, unspecified; I10 Essential (primary) hypertension
CPT/HCPCS: 85025; 99213

== ENCOUNTER → 2022-05-30 | Outpatient (CLI) | payer MEDICARE, OTHER ==
[~2022-05-30] VITALS: Ht 182 cm; Wt 102.0 kg
[~2022-05-30] MED LIST changes: +CATHETER FLUSH 10 ML SYR IVP PRN; +REGADENOSON 0.4 MG/5 ML SYR (LEXISCAN) IV ONE
[2022-05-30 08:59] VITALS: BP 168/89
--- NOTE | 2022-05-30 19:59 | STRESS TEST ---
DATE OF SERVICE: 05/30/2022 RESTING AND POST REGADENOSON TECHNETIUM-99M TETROFOSMIN SPECT CT IMAGING ORDERING PHYSICIAN: Dr. Balderrama. PRIMARY PHYSICIAN: Geoff Rucker DO CLINICAL DIAGNOSIS: Chest discomfort. Baseline images were carried out after injection of 10.87 mCi of technetium-99m tetrofosmin. This was followed by 0.4 mg of regadenoson and 32 mCi of technetium 99 tetrofosmin for stress imaging. The electrocardiogram showed sinus rhythm and right bundle branch block. The electrocardiogram did not change significantly with the regadenoson infusion. The patient tolerated the procedure well. Review of images at rest and following stress does not indicate any perfusion defects consistent with myocardial ischemia or infarction. Gated images showed normal global left ventricular systolic function with normal regional wall motion. Left ventricular ejection fraction is calculated to be 66%. CONCLUSIONS: 1. No evidence of any significant myocardial ischemia or infarction on this study. 2. Normal regional wall motion. 3. Normal global left ventricular systolic function with a calculated ejection fraction of 66%. Job ID: [id number] DocumentID: [id number] Dictated Date: 05/30/2022 16:35:45 Drywall Foreman Date: 05/30/2022 19:57:00 Dictated By: YULIA BALDERRAMA MD; MA; FACP; FACC;
== END ==
LOC: CARD 08:15
PROVIDERS: ATTEND Internal Medicine Cardiovascular Disease
DX: R07.89 Other chest pain (principal)
CPT/HCPCS: 78452; 93017; A9502

== ENCOUNTER → 2022-06-02 | Outpatient (CLI) | payer MEDICARE, OTHER ==
[~2022-06-02] MED LIST changes: -CATHETER FLUSH 10 ML SYR IVP PRN; -REGADENOSON 0.4 MG/5 ML SYR (LEXISCAN) IV ONE
== END ==
LOC: CARD 11:30
PROVIDERS: ATTEND Internal Medicine Cardiovascular Disease
DX: I51.7 Cardiomegaly (principal); I34.81 Nonrheumatic mitral (valve) annulus calcification
CPT/HCPCS: 93306